=== PATIENT | male | born 1975 | race Caucasian/White ===

== ENCOUNTER 2020-04-01 16:39 | Observation (INO) ==
[2020-04-01] MEDS ORDERED: SODIUM CHLORIDE 0.9% 1000ML 1,000 ML IV ONE (17:23)
[2020-04-01] MEDS ORDERED: KETOROLAC TROMETHAMINE 15 MG/ML VIAL IV STA (17:23)
--- NOTE | 2020-04-01 17:29 | Emergency Department Note ---
Impression & Plan Hypomagnesemia, Hypokalemia, Muscle spasm, Elevated LFTs ED Provider Note Provider: Carlito Woods MD DATE OF SERVICE: 04/01/2020 CHIEF COMPLAINT: Pain HISTORY OF PRESENT ILLNESS: Patient is a 44-year-old gentleman with a past medical history of hypokalemia and hypomagnesemia presenting today with reports of developing some left-sided pain starting yesterday presenting via private vehicle. Patient reports pain in the tops of both of his feet as well as some pain in his left wrist. Is in a wrist brace. States he does not have much of a mold mechanic with his left arm. Denies trauma. Denies fever. Denies recent tick bites. States yesterday try to rest use some icy hot and various creams without real improvement of symptoms. Initially started more on the left foot with pain with walking and a little bit overlying the top of the left ankle. Now top of both ankles and pain in the left wrist. No edema of any of these extremities reported. States a little bit of pain in the left inguinal crease to the left lateral hip/buttock area. Denies any masses here. Denies any testicular or penile discomfort. Denies any new numbness or tingling. States he does have a bit of neck discomfort and this pain over the left trapezius area in particular. Patient denies any headache or facial symptoms. States he has had issues somewhat similar to this 1 prior hypokalemia and hypomagnesemia. States he is mostly compliant with his home medications for this. Patient is right-handed. REVIEW OF SYSTEMS: A total of 10 review of systems was obtained and negative except as stated above in the HPI. PAST MEDICAL HISTORY: As noted above MEDICATIONS: Reviewed include amiloride, potassium chloride SOCIAL HISTORY: Patient is a smoker. Currently employed. PHYSICAL EXAM: GENERAL: alert and oriented in no acute distress on stretcher Head: normocephalic and atraumatic EYES: No injection, discharge or icterus. NECK: Trachea midline. Supple without crepitus. Little bit of tenderness pr edominantly over the left trapezius. Not meningitic ENT: Mucous membranes pink and moist. LUNGS: Airway patent. No retractions. Breath sounds clear HEART: Regular rate and rhythm. No chest wall tenderness ABDOMEN: Soft and non-tender, without guarding or rebound. No masses BACK: No bilateral flank tenderness. SKIN: Acyanotic, warm, dry, without rashes EXTREMITIES: Some pain with range of motion of the left wrist as well as with ROM of the bilateral ankles. No swelling noted in any of these extremities. Right upper extremity is totally unaffected. No issue with the left elbow or shoulder. No significant issues with the knees. Complains of bit of pain laterally in the left buttock hip area. 2+ bilateral DP pulses. Good capillary refill in the left hand. NEUROLOGICAL: No focal deficits. No aphasia. No facial droop or slurred speech. Sensation to gross touch normal. 4-5 left hand mold mechanic strength vs 5 out of 5 right hand mold mechanic strength. Patient's hypertension was referred to PCP HOSPITAL COURSE: [id number] Patient was first seen and H&P performed. 1955 Patient reassessed and updated. Patient was having mild improvement peer discussed options and patient was in agreement with plan for further observation here in the hospital. Patient's laboratory studies and imaging reviewed. Differential includes Infection, dehydration, metabolic abnormality, hypo/hyperglycemia, electrolyte disturbance, anemia, hypoxia, cardiac sources, intracerebral event, toxicologic, neurologic, as well as other pathologies. IMPRESSION/MEDICAL DECISION MAKING: No significant swelling or signs of erythema on the extremities and I doubt this is acutely infectious cellulitis or joint issue. Could be more musculoskeletal in nature. Neck discomfort seems that way. Do not believe this is meningitis. Doubt this is CVA. Benign abdomen. Denies numbness or tingling. Doubt cauda equina. Appearance of good vascular supply in the extremities. Will send Lyme screen as well as electrolytes. Do not feel x-ray imaging would be that helpful at this time. Given some Toradol to see if this would help with symptoms also IV fluid initially. Patient's lab do show evidence of significant hypomag nesemia and mild hypokalemia. Begin initial oral and intravenous supplementation. LFTs are also moderately elevated. Liver ultrasound completed showing some fatty liver. Patient denies current significant alcohol usage although does appear to be history in the past. Given the significant hypoma gnesemia noted discussed with the patient options at this time. Has followed with nephrology. Patient had some mild improvement initially here but discussed with him feel that further intravenous supplementation would be beneficial especially as he states he is been taking oral supplementation and has developed these low levels. Hospitalist will be contacted. DIAGNOSIS: Hypomagnesemia, hypokalemia, myalgia, muscle spasm, elevated LFTs DISPOSITION: Evaluation by the hospitalist. Patient was agreeable with this plan. Past Med/Surg History Medical History (Updated 04/02/20 @ 00:42 by Carlito Woods M.D.) Gout attack (Inactive) Hypokalemia (Acute) Hypomagnesemia (Acute) Pseudogout Family History (Updated 11/04/19 @ 08:12 by Ramya Lamar MA) Grandfather Myocardial infarction Mother Depression Alcohol abuse Denies family history of Ovarian cancer Prostate cancer Breast cancer Colorectal cancer Social History (Updated 11/04/19 @ 08:03 by Ramya Lamar MA) Preferred Language: Romansh Communication Ability: Effective Visual Impairment: No Limitations Hearing Ability: Normal Orthopedic Technician Required: No Beliefs That Will Affect Care: None marital status: Current Living Situation: Alone current occupational status: employed Other Information That Helps Us Care for You: No Feels Safe at Home: Yes Safety Concerns: Feels Safe At This Time Smoking Status: Former smoker Tobacco Type: smokeless tobacco ; Do You Dip or Chew Tobacco: Yes ; Smoking End Date: "years ago" ; Second Hand Exposure: No ; Tobacco Cessation Education Requested by Patient: No Hx Alcohol Use: Yes Alcohol type: hard liquor Alcohol Intake Frequency: Rarely Hx Substance Use: No Allergies Allergies Allergy/AdvReac Type Severity Reaction Status Date / Time No Known Allergies Allergy Verified 04/01/20 17:30 Home Meds Home Medications Medication Instructions Recorded Confirmed potassium chloride 20 mEq 40 meq PO BID #360 tab 06/14/19 04/01/20 tablet,extended release ibuprofen [Advil] 400 - 600 mg PO DIRECTED PRN 04/01/20 04/01/20 magnesium oxide 1,000 mg PO BID 04/01/20 04/01/20 Results & Data (ED) Vital Signs Vital Signs - 24 hr 04/01/20 16:41 04/01/20 18:27 04/01/20 18:38 Temperature 36.7 C Temperature Source Oral Pulse Rate 97 H Pulse Rate [Finger] 74 81 Pulse Rate from SpO2 Sensor Respiratory Rate 18 17 Respiratory Effort / Characteristics Non-Labored Respiratory Depth Normal Blood Pressure 118/81 Blood Pressure [Left Arm] 139/75 Blood Pressure Mean 93 Blood Pressure Mean [Left Arm] 96 Pulse Oximetry 94 99 Oxygen Delivery Method Room Air Sepsis Recent Fever Within 48 Hours No Sepsis New/Unexplained Change in Mental Status No Sepsis Action Taken by Nursing No Action Required 04/01/20 21:00 Temperature Temperature Source Pulse Rate 72 Pulse Rate [Finger] Pulse Rate from SpO2 Sensor 72 Respiratory Rate 20 Respiratory Effort / Characteristics Respiratory Depth Blood Pressure 125/75 Blood Pressure [Left Arm] Blood Pressure Mean 83 Blood Pressure Mean [Left Arm] Pulse Oximetry 95 Oxygen Delivery Method Room Air Sepsis Recent Fever Within 48 Hours Sepsis New/Unexplained Change in Mental Status Sepsis Action Taken by Nursing Laboratory Data Result diagrams: 04/01/20 17:30 04/01/20 17:30 Lab Results 04/01/20 04/01/20 04/01/20 Range/Units 17:30 17:30 17:30 WBC 8.97 (4.8-10.8) K/uL RBC 4.90 (4.7-6.1) M/uL Hgb 16.0 (14.0-18.0) g/dL Hct 44.6 (42-52) % MCV 91.0 (80-100) fL MCH 32.7 (25-34) pg MCHC 35.9 (32-36) g/dL RDW Std Deviation 42.5 (36.4-46.3) fL RDW Coeff of Ana 12.7 (11.5-14.5) % Plt Count 258 (130-400) K/uL MPV 9.5 (7.4-10.4) fL Immature Gran % (Auto) 0.3 % Neut % (Auto) 73.8 % Lymph % (Auto) 14.3 % Hughes % (Auto) 9.5 % Eos % (Auto) 1.4 % Baso % (Auto) 0.7 % Immature Gran # (Auto) 0.03 H (0.00-0.02) K/uL Neut # (Auto) 6.62 H (1.4-6.5) K/uL Lymph # (Auto) 1.28 (1.2-3.4) K/uL Hughes # (Auto) 0.85 H (0.11-0.59) K/uL Eos # (Auto) 0.13 (0-0.5) K/uL Baso # (Auto) 0.06 (0-0.2) K/uL Sodium 134 L (136-145) mmol/L Potassium 3.1 L (3.5-5.1) mmol/L Chloride 97 L (98-107) mmol/L Carbon Dioxide 27 (21-32) mmol/L Anion Gap 10.0 (3-11) BUN 6 L (7-18) mg/dl Creatinine 0.78 (0.6-1.4) mg/dl Est Cr Clr Drug Dosing 134.7 ml/min Est GFR ( Amer) 126.3 Est GFR (Non-Af Amer) 109.0 BUN/Creatinine Ratio 8.3 L (10-20) Glucose 89 (70-99) mg/dl Calcium 9.3 (8.5-10.1) mg/dl Magnesium 0.9 L* (1.8-2.4) mg/dl Total Bilirubin 0.8 (0.2-1) mg/dl AST 231 H (15-37) U/L ALT 318 H (12-78) U/L Alkaline Phosphatase 165 H (45-117) U/L Total Creatine Kinase 57 (39-308) U/L Total Protein 8.8 H (6.4-8.2) gm/dl Albumin 3.8 (3.4-5.0) gm/dl Globulin 5.0 H (2.5-4.0) gm/dl Albumin/Globulin Ratio 0.8 L (0.9-2) Lyme Disease IgG Ab Negative (Negative) Lyme Disease IgM Ab Equivocal A (Negative) Administered Medications Sodium Chloride (Nss 1000ml) 1,000 mls @ 125 mls/hr IV .Q8H DEONDRE Stop: 05/01/20 23:42 Last Admin: 04/02/20 00:19 Dose: 125 mls/hr Documented by: [id number] Magnesium Sulfate/Dextrose (Magnesium Sulfate / D5w) 1 gm in 100 mls @ 100 mls/hr IV Q2H DEONDRE Stop: 04/02/20 06:53 Last Admin: 04/02/20 00:24 Dose: 100 mls/hr Documented by: [id number] Ketorolac Tromethamine (Toradol) 15 mg IV Q6H PRN PRN Reason: Pain Stop: 04/06/20 23:42 Last Admin: 04/02/20 00:18 Dose: 15 mg Documented by: [id number] Discontinued Medications Sodium Chloride (Nss 1000ml) 1,000 mls @ 999 mls/hr IV .Q1H1M ONE Stop: 04/01/20 18:23 Last Infusion: 04/01/20 19:19 Dose: 0 mls/hr Documented by: [id number] Admin: 04/01/20 17:45 Dose: 999 mls/hr Documented by: [id number] Potassium Chloride (K Abdias / Wtr) 10 meq in 100 mls @ 100 mls/hr IV ONE ONE Stop: 04/01/20 19:25 Last Infusion: 04/01/20 19:42 Dose: 0 mls/hr Documented by: [id number] Admin: 04/01/20 18:36 Dose: 100 mls/hr Documented by: [id number] Magnesium Sulfate/Dextrose (Magnesium Sulfate / D5w) 1 gm in 100 mls @ 100 mls/hr IV NOW STA Stop: 04/01/20 19:26 Last Infusion: 04/01/20 19:43 Dose: 0 mls/hr Documented by: [id number] Admin: 04/01/20 18:44 Dose: 100 mls/hr Documented by: [id number] Magnesium Sulfate/Dextrose (Magnesium Sulfate / D5w) 1 gm in 100 mls @ 100 mls/hr IV NOW STA Stop: 04/01/20 20:55 Last Infusion: 04/01/20 22:05 Dose: 0 mls/hr Documented by: [id number] Admin: 04/01/20 20:58 Dose: 100 mls/hr Documented by: [id number] Potassium Chloride (K Abdias / Wtr) 10 meq in 100 mls @ 100 mls/hr IV ONE ONE Stop: 04/01/20 20:55 Last Infusion: 04/01/20 22:05 Dose: 0 mls/hr Documented by: [id number] Admin: 04/01/20 20:56 Dose: 100 mls/hr Documented by: [id number] Ketorolac Tromethamine (Toradol) 15 mg IV NOW STA Stop: 04/01/20 17:24 Last Admin: 04/01/20 17:45 Dose: 15 mg Documented by: [id number] Magnesium Chloride (Slow-Mag) 64 mg PO ONE ONE Stop: 04/01/20 18:28 Last Admin: 04/01/20 19:22 Dose: 64 mg Documented by: [id number] Potassium Chloride (Klor-Con M20) 40 meq PO NOW STA Stop: 04/01/20 18:27 Last Admin: 04/01/20 18:36 Dose: 40 meq Documented by: [id number] Discharge Plan Visit Data *Final* Discharge Date/Time: 04/01/20 23:29 Chief Complaint: Pain (Generalized) Stated Complaint: LEFT SIDE PAIN, FEET HURT, NO STRENGTH IN ARM ED Provider: Carlito Woods Discharge Problem: Hypomagnesemia, Hypokalemia, Muscle spasm, Elevated LFTs Patient Disposition: Admitted As Inpatient Discharge Instructions Interventions: ED Discharge Assessment Last Done: 04/01/20 23:29
[2020-04-01 17:42] LABS: Basophils # (auto) 0.06 K/uL (0-0.2); Basophils % (auto) 0.7 %; Eosinophils # (auto) 0.13 K/uL (0-0.5); Eosinophils % (auto) 1.4 %; Hematocrit (blood only) 44.6 % (42-52); Immature Granulocytes # (auto) 0.03 K/uL (0.00-0.02); Immature Granulocytes % (auto) 0.3 %; Lymphocytes # (auto) 1.28 K/uL (1.2-3.4); Lymphocytes % (auto) 14.3 %; Mean Corpuscular Hemoglobin 32.7 pg (25-34); Mean Corpuscular Hgb Conc 35.9 g/dL (32-36); Mean Platelet Volume 9.5 fL (7.4-10.4); Monocytes # (auto) 0.85 K/uL (0.11-0.59); Monocytes % (auto) 9.5 %; Neutrophils # (auto) 6.62 K/uL (1.4-6.5); Neutrophils % (auto) 73.8 %; Platelet Count 258 K/uL (130-400); RDW Coefficient of Variation 12.7 % (11.5-14.5); RDW Standard Deviation 42.5 fL (36.4-46.3); White Blood Count 8.97 K/uL (4.8-10.8)
[2020-04-01 18:08] LABS: Albumin Globulin Ratio 0.8 (0.9-2); Albumin Level 3.8 gm/dl (3.4-5.0); BUN Creatinine Ratio 8.3 (10-20); Bilirubin,Total 0.8 mg/dl (0.2-1); Calcium 9.3 mg/dl (8.5-10.1); Creatinine Clr Calc Pharmacy 134.7 ml/min; Est GFR (African American) 126.3; Magnesium 0.9 mg/dl (1.8-2.4); Potassium 3.1 mmol/L (3.5-5.1); Total Protein 8.8 gm/dl (6.4-8.2)
[2020-04-01] MEDS ORDERED: POTASSIUM CHLORIDE / WTR 10 MEQ/100 ML PLCT IV ONE ×2 (18:26→19:56)
[2020-04-01] MEDS ORDERED: POTASSIUM CHLORIDE 20 MEQ TABCR PO STA (18:26)
[2020-04-01] MEDS ORDERED: MAGNESIUM SULFATE / D5W 1 GM/100 ML BAG IV STA ×2 (18:27→19:56)
[2020-04-01] MEDS ORDERED: MAGNESIUM CHLORIDE 64MG DELAYED REL TAB PO ONE (18:27)
[2020-04-01 18:41] LABS: Lyme Ab IgG w/WB Rflx Negative (Negative)
[2020-04-01 18:53] LABS: Lyme Ab IgM w/WB Rflx Equivocal (Negative)
--- NOTE | 2020-04-01 20:44 | History & Physical Report ---
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 Full Code (2) Hypomagnesemia: (3) Elevated LFTs: History of Present Illness Chief Complaint: Pain Primary Care Provider: Nel Blackman PA-C Mukesh Trent is a 44 year old man with a past medical history of Hypokalemia and hypomagnesemia who presents today with pain. Pain is located in both of his feet across the top and down the lateral aspect of his foot, in his left groin area and his left wrist. Yesterday he tried rest, icy hot and a wrist brace none of which were effective in relieving his pain. He found the pain in his feet was exacerbated by walking. Patient presented to ED by car, vitals WNL, labwork significant for hypokalemia of 3.1, hypo magnesemia of 0.9, normal GFR, elevated AST ALT at 231 and 318 respectively, elevated alk phos of 165, elevated globulin and total protein and equivocal lyme IgM. Liver ultrasound ordered which showed fatty infiltration of the liver. Patient was given toradol, q 1L bolus NSS, 60 meq of KCl, 2 grams of IV magnesium and 64 mg of MgCl PO and patient is already feeling quite a bit better. He was formerly a heavy drinker, but drinks only on occasion now, he has tattoos, no history of IV drug use, no shared razors, no new sexual partners. He denies any recent illness, extremity swelling or abdominal distension, abdominal pain, diarrhea, or any changes in urinating defecating. He denies any recent fevers or chills, no sick contacts no shortness of breath, no cough, no vomiting, no chest pain, no palpitations, no lightheadedness/syncope, no skin rashes. Allergies Allergy/AdvReac Type Severity Reaction Status Date / Time No Known Allergies Allergy Verified 04/01/20 17:30 Home Medications Home Medications Medication Instructions Recorded Confirmed Type potassium chloride 20 mEq 40 meq PO BID #360 tab 06/14/19 04/01/20 History tablet,extended release ibuprofen [Advil] 400 - 600 mg PO DIRECTED PRN 04/01/20 04/01/20 History magnesium oxide 1,000 mg PO BID 04/01/20 04/01/20 History Past Med/Surg History Medical History (Updated 04/02/20 @ 16:53 by HARLEEN Pratt) Gout attack (Inactive) Hypokalemia (Acute) Hypomagnesemia (Acute) Pseudogout Family History (Updated 11/04/19 @ 08:12 by Ramya Lamar MA) Grandfather Myocardial infarction Mother Depression Alcohol abuse Denies family history of Ovarian cancer Prostate cancer Breast cancer Colorectal cancer Social History (Updated 11/04/19 @ 08:03 by Ramya Lamar MA) Preferred Language: Tristanian Communication Ability: Effective Visual Impairment: No Limitations Hearing Ability: Normal Epic Cadence Analyst Required: No Beliefs That Will Affect Care: None marital status: Current Living Situation: Alone current occupational status: employed Other Information That Helps Us Care for You: No Feels Safe at Home: Yes Safety Concerns: Feels Safe At This Time Smoking Status: Former smoker Tobacco Type: smokeless tobacco ; Do You Dip or Chew Tobacco: Yes ; Smoking End Date: "years ago" ; Second Hand Exposure: No ; Tobacco Cessation Education Requested by Patient: No Hx Alcohol Use: Yes Alcohol type: hard liquor Alcohol Intake Frequency: Rarely Hx Substance Use: No Review of Systems Review of Systems: All systems reviewed & are unremarkable except as noted in HPI & below Physical Exam Physical Exam: Constitutional: Well appearing 44 year old man lying in bed in no apparent distress easily conversing Eyes: Anicteric sclerae, PERRLA, EOMMI bilaterally Respiratory: No increased work of breathing or accessory muscle use, lung sounds vesicular in all lung duran. Cardiovascular: Heart sounds dual no murmurs, rubs skips or gallops, regular rate regular rhythm, peripheral pulses intact and equal GI: Abdomen soft/non tender, non palpable liver, no masses detected, no ascites appreciated MSK: Tenderness to palpation of wrist groin/inguinal ligament area, and bilateral feet. Pain is replicated with palpation but no to the extent that movement causes discomfort. No loss of strength or function appreciated. Neuro: No focal abnormalities, Symmetric strength and sensation Results & Data Results & Data ([facility]) Vital Signs (Past 12 Hours) Vital Signs Temp Pulse Pulse Resp BP BP Pulse Ox 04/01/20 18:38 81 17 139/75 99 04/01/20 18:27 74 04/01/20 16:41 36.7 C 97 H 18 118/81 94 Supervising Physician Co-Signing Physician Notes Attending addendum: I have physically seen this patient, have supervised the medical residents activities, and agree with the H&P unless as otherwise noted. Assessment and Plan: Hypokalemia/hypomagnesemia- Replace with oral and IV supplementation. Repeat laboratories in a.m. Consult nephrology. Differential including: Gitelman's, Don's. Aldosteronism less likely with normal blood pressure Abnormal LFTs- Ultrasound right upper quadrant shows fatty liver. Order CT abdomen pelvis. Acute hepatitis work-up. Complete metabolic work-up to be performed. Check a fasting for panel and hemoglobin A1c. Pain- Treatment with Toradol as noted. Remainder of orders and notations as noted. Resident Activity Tracking Resident Involvement: Resident Care Provided Care Provided: Adult Hospital Medicine
--- NOTE | 2020-04-01 20:56 | Ultrasound Report ---
US liver CLINICAL HISTORY: elevated lfts COMPARISON STUDY: CT of the abdomen and pelvis April 30, 2018. FINDINGS: Hepatic echogenicity is increased. No hepatic lesions are identified. There is no biliary d uctal dilatation. The common bile duct measures 3 mm in caliber. No gallstones are noted. There is no gallbladder wall thickening. Pancreatic body is normal. Head and tail are partially obscured. There is no right hydronephrosis. IMPRESSION: 1. Fatty infiltration of the liver. 2. No gallstones or biliary ductal dilatation. 3. Partially obscured pancreas. ACT 112: Negative or not required by law. Electronically signed by: Laci Ruiz M.D. 04/01/2020 8:55 PM
[2020-04-01] MEDS ORDERED: ONDANSETRON INJ 2 MG/ML 2 ML VIAL IV PRN (23:43)
[2020-04-01] MEDS ORDERED: POLYETHYLENE (MIRALAX) 17 GM PACK PO PRN (23:43)
[2020-04-02] MEDS: KETOROLAC TROMETHAMINE 15 MG/ML VIAL IV PRN ×4 (00:18→19:45)
[2020-04-02] MEDS: SODIUM CHLORIDE 0.9% 1000ML 1,000 ML IV SCH ×2 (00:19→07:52)
[2020-04-02] MEDS: MAGNESIUM SULFATE / D5W 1 GM/100 ML BAG IV SCH ×4 (00:24→03:27)
[2020-04-02 00:56] LABS: Prothrombin Time 10.5 Seconds (9.0-12.0)
[2020-04-02 01:01] LABS: Ferritin 1709.6 ng/ml (8-388)
[2020-04-02 06:37] LABS: Albumin Level 3.3 gm/dl (3.4-5.0); Calcium 8.4 mg/dl (8.5-10.1); Est GFR (African American) 129.1; Est GFR (Non-African American) 111.4; Magnesium 2.7 mg/dl (1.8-2.4); Potassium 3.5 mmol/L (3.5-5.1)
[2020-04-02 06:40] LABS: Albumin Globulin Ratio 0.7 (0.9-2); Bilirubin,Total 1.3 mg/dl (0.2-1); Globulin 4.5 gm/dl (2.5-4.0); Phosphorus 3.7 mg/dl (2.5-4.9); Total Protein 7.8 gm/dl (6.4-8.2)
[2020-04-02 08:59] LABS: Hepatitis B Surface Antigen Neg (Neg)
[2020-04-02] MEDS ORDERED: ENOXAPARIN INJ 40 MG/0.4 ML SYR SQ SCH (09:00)
[2020-04-02 09:28] LABS: Hepatitis C IgG 13Yrs+Old_Rflx Neg (Neg)
[2020-04-02] MEDS: ACETAMINOPHEN 325 MG TAB PO PRN ×2 (14:39→20:25)
--- NOTE | 2020-04-02 16:32 | Hospitalist Progress Note ---
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 Trent had been seen by Dr. 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 He was unable to tolerate spironolactone due to gynecomastia. Could consider eplerenone going forward Continue Toradol IV Potassium low normal today - will give 20 mEq po and recheck am (2) Hypomagnesemia: resolved, will check am (3) Elevated LFTs: improving although Bili is 1.3 today Liver U/s showing fatty infiltration of liver Hepatitis panel pending Former alcohol abuser still drinks ocassionally but not a typical pattern for ethanol injury (4) Joint pain: Continue toradol as above. Electrolytes have been corrected but pain persists which argues against spasm due to electrolyte disturbance. Given the fatty liver and joint pain - awaiting ceruloplasmin to evalutate for Allen's disease. Ferritin was high but TIBC and and iron normal so likely reactive. Lyme western blot pending Will obtain RF, anti- CCP, CRP, fibrinogen, (5) Fatty liver: As seen on liver ultrasound In addition to labs above alpha 1 antitrypsin pending, will get fasting lipids, (6) DVT prophylaxis: Enoxaparin Admission and Anticipated Discharge Date Admission Date: April 01, 2020 Subjective Mr. Trent continues to have pain in his bilateral tops of feet, left groin, left wrist and fingers. It is improved with Toradol but as it wears off the pain makes it difficult to walk. ROS Constitutional: no chills, aches, sweats or fever Respiratory: no sob,cough, sputum, or wheezing Cardiac: no chest pain, palpitations, edema, orthopnea or lightheadedness GI: no abdominal pain, nausea, vomiting, diarrhea or constipation : no dysuria or hesitancy Extremities: no joint pain or weakness Skin: no rash All other systems reviewed and negative Physical Exam Physical Exam: General: no distress Eyes: normal inspection, PERLL Respiratory: chest non tender, clear to auscultation, normal breath sounds, no respiratory distress, no accessory muscle use Cardiac: regular rate and rhythm, no rub or gallop, no murmur, no edema, no jvd GI/: active bowel sounds, no abd pain or tenderness, soft, non distended Extremities: normal range of motion, normal strength, non tender Neuro/Psych: alert and oriented x 3, normal mood and affect Skin: normal color, dry Results & Data Results & Data ([facility]) Vital Signs (Past 12 Hours) Vital Signs Temp Pulse Resp BP BP Pulse Ox 04/02/20 15:33 37.2 C 74 17 131/76 97 04/02/20 07:54 36.7 C 72 18 121/80 96 PG Care Time/CCT Total # of Minutes Spent Total Time Spent with Patient: Total time spent is greater than 50% in coordination of care (as documented) at patient's floor/unit and/or counseling patient: Coding Level of Care Code 91845 Subseq Hosp Care Lvl 3 Diagnoses Hypokalemia E87.6 Hypomagnesemia E83.42 Elevated LFTs R79.89 Joint pain M25.50 Fatty liver K76.0 DVT prophylaxis Z29.9
[2020-04-02] MEDS ORDERED: POTASSIUM CHLORIDE 20 MEQ TABCR PO ONE (16:42)
[2020-04-02 23:13] VITALS: TEMP 98.1
--- NOTE | 2020-04-02 23:50 | Billing Data ---
Date of Service April 02, 2020 Coding Level of Care Code 16352 Initial Inpt Care Lvl 2
[2020-04-03] MEDS: KETOROLAC TROMETHAMINE 15 MG/ML VIAL IV PRN ×2 (01:54→09:11)
[2020-04-03 06:40] LABS: Albumin Level 2.9 gm/dl (3.4-5.0); BUN Creatinine Ratio 13.8 (10-20); C Reactive Protein 5.45 mg/dl (0-0.29); Calcium 8.9 mg/dl (8.5-10.1); Creatinine Clr Calc Pharmacy 143.9 ml/min; Est GFR (African American) 129.8; Potassium 3.2 mmol/L (3.5-5.1)
[2020-04-03 06:44] LABS: Albumin Globulin Ratio 0.7 (0.9-2); Bilirubin,Total 1.3 mg/dl (0.2-1); Globulin 4.2 gm/dl (2.5-4.0); Total Protein 7.1 gm/dl (6.4-8.2)
[2020-04-03 07:10] LABS: Fibrinogen 551 mg/dl (184-400)
[2020-04-03 07:43] VITALS: BP 108/71; PULSE 59; O2SAT 97
[2020-04-03] MEDS ORDERED: POTASSIUM CHLORIDE 20 MEQ TABCR PO ONE (09:00)
--- NOTE | 2020-04-03 12:10 | Discharge Summary ---
Date of Service April 03, 2020 Admission HPI Per Admitting Provider Mukesh Trent is a 44 year old man with a past medical history of Hypokalemia and hypomagnesemia who presents today with pain. Pain is located in both of his feet across the top and down the lateral aspect of his foot, in his left groin area and his left wrist. Yesterday he tried rest, icy hot and a wrist brace none of which were effective in relieving his pain. He found the pain in his feet was exacerbated by walking. Patient presented to ED by car, vitals WNL, labwork significant for hypokalemia of 3.1, hypo magnesemia of 0.9, normal GFR, elevated AST ALT at 231 and 318 respectively, elevated alk phos of 165, elevated globulin and total protein and equivocal lyme IgM. Liver ultrasound ordered which showed fatty infiltration of the liver. Patient was given toradol, q 1L bolus NSS, 60 meq of KCl, 2 grams of IV magnesium and 64 mg of MgCl PO and patient is already feeling quite a bit better. He was formerly a heavy drinker, but drinks only on occasion now, he has tattoos, no history of IV drug use, no shared razors, no new sexual partners. He denies any recent illness, extremity swelling or abdominal distension, abdominal pain, diarrhea, or any changes in urinating defecating. He denies any recent fevers or chills, no sick contacts no shortness of breath, no cough, no vomiting, no chest pain, no palpitations, no lightheadedness/syncope, no skin rashes. Principal Diagnosis Hypokalemia, hypomagenesemia Discharge Exam Constitutional WD/WN, vitals as above Respiratory normal respiratory effort, lungs clear to auscultation Cardiovascular RRR, no murmur, no edema Gastrointestinal (Abdomen) normal bowel sounds, soft, nontender, no hepatosplenomegaly Musculoskeletal no cyanosis or clubbing, extremities motor strength 5/5 Skin no rashes, warm and dry Neurologic moves all extremities and awake Psychiatric A+Ox3, euthymic affect Discharge Data Allergies Allergy/AdvReac Type Severity Reaction Status Date / Time No Known Allergies Allergy Verified 04/01/20 17:30 Consultations 04/01/20 20:26 ED Decision to Admit Stat Ordered Studies 04/01/20 20:05 US liver Stat Hospital Course (1) Hypokalemia: Mukesh Trent is a 44 year old man with a 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 Trent had been seen by Dr. 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 He was unable to tolerate spironolactone due to gynecomastia. Will send patient with eplerenone 25 mg daily and continue his home supplements Given toradol inpatient but will have him change to Tylenol and start (2) Hypomagnesemia: resolved, continue home supplementation (3) Elevated LFTs: improving although Bili is 1.3 today Liver U/s showing fatty infiltration of liver Hepatitis panel pending Former alcohol abuser still drinks ocassionally but not a typical pattern for ethanol injury (4) Joint pain: Electrolytes have been corrected but pain persists which argues against spasm due to electrolyte disturbance. Given the fatty liver and joint pain - awaiting ceruloplasmin to evaluate for Allen's disease. Ferritin was high but TIBC and and iron normal so likely reactive. Lyme western blot pending Will obtain RF, anti- CCP was normal, CRP elevated at 5.45, fibrinogen was 551, - patient is having some kind of inflammatory process but unclear from what Total Time Total Time Spent Total Time Spent (In Minutes): greater than 30 minutes Discharge Plan Discharge Items Patient Disposition: Home - Self-Care Reason For Visit: PAIN HYPOKALEMIA HYPOMAGNESEMIA, GITELMAN SYNDROME Discharge Diagnosis: Hypokalemia Activity: Resume your previous activity Non-emergency contact: Primary Care Provider Call non-emergency contact if: you have any medication questions Follow-up/Referrals: Nel Blackman PA-C [Primary Care Provider] - (follow up with Nel Blackman in 1 week OFFICE WILL CALL YOU WITH APPOINTMENT) Diet: Regular Addtl Attending Provider Instructions: (1) Hypokalemia: Resume your hypokalemia supplementation. You will receive a new prescription for eplerenone to help your kidneys spare potassium from excretion. Please have your provider recheck your potassium level when you follow up with them next week. (2) Hypomagnesemia: Continue your home supplementation. Please have your provider recheck this level when you see her next week. (3) Elevated LFTs: Your liver function panel is improving. Please have your provider recheck your liver panel when you follow up in a week Your hepatitis panel is pending (4) Joint pain: It is unclear what is causing your pain. There are quite a few labs pending that might shed more light on whether you have autoimmune process happening. For now I recommend you discontinue ibuprofen and use Tylenol for pain. You can do 1,000 mg (1 g) every 8 hours. Do not exceed 3,000 mg in 24 hours. I will also start you on duloxetine to help with any neuropathic element to your pain. This medication will take 3-4 weeks to take full effect. I am starting you on a low dose so please let your provider know if your pain persists as you can increase the dose per their instruction (5) Fatty liver: As seen on liver ultrasound. Fatty liver is often caused by alcohol use though from your records it sounds like you only drink occasionally now. It can also be caused by diet - try to avoid "white", processed foods ie: White flour, white pasta, white bread in favor of whole grains and eat a diet with plenty of fruits, vegetables, lean proteins such as poultry, fish and beans, and avoid sweets. You also have some lab work pending to see if there is another disease process that might be causing your elevated liver panel and fatty liver. Pending Studies at Discharge: Yes Studies:: Alpha-1 antitrypsin phenotype, ceruloplasmin, rheumatoid factor, Hepatitis panel, Lyme disease western blot Stand-Alone Forms: My [facility], Smoking Cessation Medications and DC Order Prescriptions: New eplerenone 25 mg tablet 25 mg PO DAILY Qty: 30 RF: 2 duloxetine 20 mg capsule,delayed release(DR/EC) 20 mg PO BID Qty: 30 RF: 0 Continued potassium chloride 20 mEq tablet extended release 40 meq PO BID Qty: 360 RF: 0 magnesium oxide 500 mg Tablet 1,000 mg PO BID RF: 0 Discontinued ibuprofen [Advil] 200 mg Tablet 400 - 600 mg PO DIRECTED PRN (Reason: Pain) RF: 0 Discharge Orders: Discharge Order (Routine); Ordered 04/03/20 Ordered By: Jami Ott/Other Patient Handouts: Eplerenone tablets, Duloxetine delayed-release capsules Admission Data Admit Date/Time: 04/01/20 22:36 Attending Provider: Barry Kerr Admit Provider: Ghanshyam Haddad Primary Care Provider: Nel Blackman Other Providers: Barry Kerr Other Interventions: Discharge Summary Assessment (RN) Last Done: 04/03/20 12:23 DC Date/Time DO NOT enter until pt leaves facility: 04/03/20 13:43 Supervising Physician Co-Signing Physician Notes I supervised Jami Kaur NP on this patient's care. I examined the patient today independently of her. I discussed the plan of care with her with the plan being as written in her note except for any following changes/exceptions: None. Pain is improving slowly. He is stable for discharge. Diagnosis is still unclear, but hopefully send-out labs will elucidate etiology. Will seek outpatient care. Coding Level of Care Code D/C Day Management >30 mins Diagnoses Hypokalemia E87.6 Hypomagnesemia E83.42 Elevated LFTs R79.89 Joint pain M25.50
[2020-04-04 15:50] LABS: 18KDIGG Band NON-REACTIVE; 23KDIGG Band NON-REACTIVE; 23KDIGM Band NON-REACTIVE; 28KDIGG Band NON-REACTIVE; 30KDIGG Band NON-REACTIVE; 39KDIGG Band NON-REACTIVE; 39KDIGM Band NON-REACTIVE; 41KDIGG Band NON-REACTIVE; 41KDIGM Band NON-REACTIVE; 45KDIGG Band NON-REACTIVE; 58KDIGG Band NON-REACTIVE; 66KDIGG Band NON-REACTIVE; 93KDIGG Band NON-REACTIVE; Lyme Antibodies, WB IgG NEGATIVE (NEGATIVE); Lyme Antibodies, WB IgM NEGATIVE (NEGATIVE)
[2020-04-08 15:40] LABS: Ceruloplasmin 37 mg/dL (18-36); Hepatitis A Antibody IgM NON-REACTIVE (NON-REACTIVE); Hepatitis B Core Antibody IgM NON-REACTIVE (NON-REACTIVE)
== END 2020-04-03 13:43 | disposition home or self-care (01) ==
LOC: ED 16:39 → 3E 22:36 → INTOOBSV 22:36 → SUATTDRO 22:36 → 3E 23:29